=== PATIENT | male | born 1980 | race Caucasian/White ===

== ENCOUNTER 2016-12-01 21:46 | Inpatient (IN) | payer SELFPAY ==
[~2016-12-01] VITALS: Ht 190.5 cm; Wt 186.4 kg
[2016-12-01 23:25] LABS: BASOPHILS 0.2 % (0-2); EOSINOPHILS 0.9 % (0-7); HEMATOCRIT 46.5 % (42.0-54.0); IMMATURE GRANULOCYTES 0.5 % (0-5); LYMPHOCYTES 16.4 % (15-50); MCH 32.6 pg (26.0-34.0); MCHC 34.4 g/dL (31.0-37.0); MCV 94.7 fL (80.0-100.0); MEAN PLATELET VOLUME 9.8 fL (7.4-10.4); MONOCYTES 4.7 % (2-11); NEUTROPHILS 77.3 % (40-80); PLATELET COUNT 191 10x3/uL (130-400); RBC 4.91 10x6/uL (4.20-6.10); RDW 12.2 % (11.5-14.5); WBC 11.1 10x3/uL (4.8-10.8)
[2016-12-01 23:47] LABS: ALBUMIN 3.7 g/dL (3.4-5.0); ANION GAP 8.9 mmol/L (8-16); BILIRUBIN - TOTAL 0.37 mg/dL (0.2-1.3); CALCIUM 8.9 mg/dL (8.5-10.1); CARBON DIOXIDE 30.4 mmol/L (21.0-32.0); CREATININE - SERUM 1.3 mg/dL (0.6-1.3); MAGNESIUM - SERUM 2.2 mg/dL (1.8-2.4); POTASSIUM - SERUM 4.3 mmol/L (3.5-5.1); PROTEIN - SERUM 7.5 g/dL (6.4-8.2)
[2016-12-02 00:04] LABS: UDS - AMPHET NEGATIVE QUAL (NEGATIVE); UDS - BARB NEGATIVE QUAL (NEGATIVE); UDS - BENZO NEGATIVE QUAL (NEGATIVE); UDS - COCAINE NEGATIVE QUAL (NEGATIVE); UDS - METH NEGATIVE QUAL (NEGATIVE); UDS - OPIATE NEGATIVE QUAL (NEGATIVE); UDS - PCP NEGATIVE QUAL (NEGATIVE); UDS - THC POSITIVE QUAL (NEGATIVE)
[2016-12-02 17:07] LABS: HEMOGLOBIN A1C 4.9 % (4.8-6.0)
[2016-12-02 17:41] VITALS: BP 137/87; Ht 190.5 cm; Wt 186.4 kg
--- NOTE | 2016-12-06 08:20 | EEG ---
PATIENT:MURIEL LUNSFORD DATE OF SERVICE: 12/02/16 MEDICAL RECORD: [id number] DATE OF : [birth year] LOCATION:D.223 D.MS ADMISSION DATE: 12/02/16 REFERRING PHYSICIAN: INTERPRETING PHYSICIAN: PASCALE SAWYER MD DATE OF SERVICE: 12/02/2016 Referred as an inpatient by myself, currently in room 2232. ELECTROENCEPHALOGRAM NUMBER: [id number] DATE OF EXAMINATION: 12/02/2016 at 3:30 p.m. DATE OF : 1980 TECHNICAL DATA: This electroencephalographic recording consists of approximately 20 minutes of data collection utilizing the international 10/20 system of electrode placement and both referential and non-referential montages. Sixteen channels of electrocerebral recording are accompanied by a 17th channel dedicated to the electrocardiographic rhythm and 2 channels of electromyographic recording. Recording is performed in the awake and drowsy states utilizing activation by photic stimulation. ELECTROENCEPHALOGRAPHIC DATA: The awake state comprises approximately 30% of the recorded electrocerebral activity. Electromyographic artifact is prominent and rapid eye movements are seen. The posterior dominant background consists of a well-developed, symmetric, rhythmic, waxing and waning alpha activity of 9-10 Hz, which is suppressed by eye opening. Also seen is an intermittent irregular, generalized and symmetric 5-6 Hz theta slowing, which occurs for periods of 1-2 seconds approximately once every 2-3 pages. The drowsy state comprises the remaining portion of the recorded electrocerebral activity. Electromyographic artifact is diminished and rapid eye movements are not seen. The posterior dominant background is relatively suppressed. Individual sharp waves are observed with a minor after going slow component. These occur independently, one in the left temporal region, maximal on the scalp recording at T5 and the other in the right temporal region with a maximum at T6. No clinical or electrocerebral seizures were identified. The sharp waves are not observed elsewhere in the recording. Photic stimulation induces no change in the recorded electrocerebral activity. INTERPRETATION: 1. Sharp waves, bifocal, independent, left and right temporal (awake and drowsy). 2. Intermittent slow, generalized. This electroencephalographic recording is indicative of a mild diffuse encephalopathy and gives evidence of epileptogenic foci that are bifocal and independent from the left and right temporal regions, maximal on the scalp recording independently at T5 and T6. 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
== END 2016-12-02 20:56 | disposition home or self-care (01) | DRG 101 ==
LOC: D.ER 21:46 → D.SDCHOLD 12-02 01:24 → D.MS 12-02 01:24
PROVIDERS: Emergency Medicine; ADMIT Family Medicine
DX: R56.9 Unspecified convulsions (principal); F17.203 Nicotine dependence unspecified, with withdrawal; Z68.43 Body mass index [BMI] 50.0-59.9, adult; F12.90 Cannabis use, unspecified, uncomplicated; E66.9 Obesity, unspecified; G47.33 Obstructive sleep apnea (adult) (pediatric)